=== PATIENT | male | born 1955 | race Caucasian/White ===

== ENCOUNTER 2020-11-17 12:10 | Emergency (ER) | payer MEDICARE, OTHER ==
[~2020-11-17 12:10] MED LIST: ASPIR 8181 MG PO; ASPIRIN EC81 MG PO; ATENOLOL-CHLOR1 EACH PO; CHLORTHALIDONE25 MG PO; CHRONULAC20 GM/30 M PO; IBUPROFEN600 MG PO; LIPITOR TAB 2020 MG PO; LOPRESSOR 25 MG25 MG PO; MECLIZINE HCL12.5 MG PO; NORVASC 5 MG TAB5 MG PO; PERCOCET 10-321 EACH PO; ZYRTEC-D TABLE1 EACH PO
[2020-11-17] MEDS ORDERED: BACITRACIN28.4 GM TP (13:41)
== END 2020-11-17 13:46 | disposition home or self-care (01) ==
LOC: ER1 12:10
DX: S61.210A Laceration without foreign body of right index finger without damage to nail, initial encounter (principal); I10 Essential (primary) hypertension; E78.5 Hyperlipidemia, unspecified; F17.220 Nicotine dependence, chewing tobacco, uncomplicated; W27.0XXA Contact with workbench tool, initial encounter; Y92.009 Unspecified place in unspecified non-institutional (private) residence as the place of occurrence of the external cause
CPT/HCPCS: 12001; 73130; 90471; 90714; 90715; 99283; J7030

== ENCOUNTER 2020-11-25 14:13 | Emergency (ER) | payer MEDICARE, OTHER ==
[~2020-11-25 14:13] MED LIST changes: +BACITRACIN28.4 GM TP
== END 2020-11-25 15:08 | disposition home or self-care (01) ==
LOC: ER1 14:13
DX: S61.210D Laceration without foreign body of right index finger without damage to nail, subsequent encounter (principal); I11.9 Hypertensive heart disease without heart failure; I25.2 Old myocardial infarction
CPT/HCPCS: 99282

== ENCOUNTER 2020-11-28 11:20 | Emergency (ER) | payer MEDICARE, OTHER ==
[2020-11-28] MEDS ORDERED: BACTROBAN OINT22 GM EXT (11:40)
== END 2020-11-28 11:49 | disposition home or self-care (01) ==
LOC: ER1 11:20
DX: S61.210D Laceration without foreign body of right index finger without damage to nail, subsequent encounter (principal); I10 Essential (primary) hypertension; F17.220 Nicotine dependence, chewing tobacco, uncomplicated; Z88.6 Allergy status to analgesic agent; X58.XXXD Exposure to other specified factors, subsequent encounter
CPT/HCPCS: 99281